=== PATIENT | male | born 1985 | race Caucasian/White ===

== ENCOUNTER 2024-08-17 00:15 | Day surgery (SDC) | payer OTHER, SELFPAY ==
[2024-08-08 15:45] VITALS: BMI 35.6
--- NOTE | 2024-08-08 15:46 | PC.NURSE ---
Addendum entered by Kourtney Velasquez RN 08/08/24 15:54: PT HAS STOPPED [facility] LAST DOSE 08/04/24 Original Note: Report to the Outpatient Waiting Room, entrance under the green pavilion located off [facility], at time 0600_ on date _09/13/24_. Planned Procedure Time: _0730_.? Time changes happen often and if your time is changed the preop area will call you the afternoon before. - You and your visitor will be asked to self-screen and do not enter if you have any COVID symptoms. Please call surgeon if you need to reschedule. - A mask is optional within the hospital at this time. Patients may have clear liquids (water, carbonated beverages, clear teas, apple juice) until 3 hours prior to surgery with a maximum of 20 ounces. - No food from midnight until time of surgery and no smoking, or chewing tobacco (or any form of nicotine). No chewing gum, candy or mints. - Infants may have breast milk until 4 hours before surgery, formula 6 hours prior to surgery. - Children will be allowed to drink immediately following surgery.? If applicable, please bring a bottle or sippy cup to assist with drinking. Juice, water, soda, and popsicles are readily available.? For infants on formula, please bring formula the day of surgery.? Pacifiers are allowed. Take only the following medications with a SIP of water on the morning of surgery: ___WELLBUTRIN, LEXAPRO, NALTREXONE DO NOT STOP ANY OF YOUR OTHER PRESCRIPTION MEDICATIONS PRIOR TO SURGERY EXCEPT THE FOLLOWING Hold all vitamins and supplements for 3 days per anesthesiologist. Medications to discontinue per physician Date to take last dose Please no make-up, nail portuguese, hairspray, perfume, deodorant, or body powder the day of surgery.? No jewelry (including any body piercings) or valuables the day of surgery, leave them at home.? Please take a shower or bath the night before, or the morning of, surgery with an antibacterial soap.? Wear comfortable, loose fitting clothing.? Children are encouraged to wear pajamas. - Jewelry must be removed prior to entering the operating room.? Rings and piercings that are not removed may be cut off. - The hospital will not accept responsibility for valuables.? - Please leave all valuables, including medications, at home the day of surgery. If you are going home after surgery, a licensed motor pool driver must drive you home.? - NO public transportation without another adult if you receive anesthesia. - We recommend that an adult stay with you for 24 hours following discharge. - We also recommend that you do not drive, make important decision, drink alcoholic beverages, or take any drugs that were not prescribed by your health care provider for at least 24 hours after your discharge time. For Pediatric surgeries, we recommend two adults accompany the child home. Follow any additional instructions given to you from your surgeon. Telephone instructions given to _PATIENT_and asked if any additional questions and then verbalized understanding. Patient advised to call surgeon office or pre surgery nurse liaison [phone] if any additional questions.
--- NOTE | 2024-08-16 14:28 | PM.IMHP ---
H&P: HPI History of Present Illness Date/Time: 08/16/24 14:28 Chief Complaint: left posterior ankle pain Narrative: 38-year-old gentleman with posterior left ankle and Achilles tendon pain. Prominence of the calcaneus. Pain with activity and daily use. Pain with weight-bearing. Unrelieved with therapy, stretching, inserts. Review of Systems Constitutional: Constitutional: Denies fever(s) Eyes: Eyes: Denies blurry vision ENT: Reports Normal hearing present Cardiovascular: Cardiovascular: Denies chest pain and Denies dyspnea Respiratory: Respiratory: Denies dyspnea and Denies wheezing Gastrointestinal: Gastrointestinal: Denies abdominal pain Genitourinary: Genitourinary: Denies urinary urgency Musculoskeletal: Musculoskeletal: Reports as per HPI and Denies numbness Integumentary/Breasts: Skin/Breast: Denies changing lesions and Denies sores Neurologic: Reports Normal hearing present, Denies behavioral changes, Denies confusion, Denies numbness and Denies convulsions Psychiatric: Psychiatric: Denies behavioral changes, Denies confusion and Denies hallucinations Endocrine: Endocrine: Denies heat intolerance Hematologic/Lymphatic: Hematologic/Lymphatic: Denies easy bleeding Allergic/Immunologic: Allergic/Immunologic: Denies wheezing PMF Past Medical History Medical History Exostosis of left posterior calcaneus Achilles tendinitis of left lower extremity Surgical History Surgical History H/O vasectomy History of appendectomy Family History Family History Unknown Hypertension Depression Heart disease Diabetes mellitus Cancer Social History Social History Social History: caffeine use Smoking status: Never smoker Alcohol intake: current Drinks per week: 1 Alcohol use details: 2 PER MONTH Substance use: never Living arrangements: with family Occupation/Education: occupation Additional occupation/education comments: [employer] Gender identity (if verbalized by the patient): Male Meds Home Medications and Allergies Home Medications ?Medication ?Instructions ?Recorded ?Confirmed ?Type bupropion HCl 150 mg 24 hr tablet, 150 mg PO QAM 07/11/24 08/08/24 History extended release (Wellbutrin XL) dextroamphetamine-amphetamine 10 10 mg PO BID 07/11/24 08/08/24 History mg tablet (Adderall) escitalopram oxalate 20 mg tablet 20 mg PO DAILY 07/11/24 08/08/24 History (Lexapro) naltrexone 50 mg tablet 25 mg PO DAILY 07/11/24 08/08/24 History tirzepatide 12.5 mg/0.5 mL 12.5 mg subcut WEEKLY 08/08/24 08/08/24 History subcutaneous pen injector (Mounjaro) Allergies Allergy/AdvReac Type Severity Reaction Status Date / Time No Known Allergies Allergy Unverified 08/08/24 15:36 Exam Const: General: No confusion Orientation/consciousness: No confusion HENMT: Head: normal to inspection, normocephalic and atraumatic Eyes: Conjunctivae: conjunctivae normal Sclera: sclerae normal Neck: Neck: supple and nontender Chest: Chest palpation & inspection: normal inspection of the chest Resp: Effort & Inspection: normal respiratory effort and no audible wheezes Cardio: Rate: regular rate Rhythm: regular rhythm : General: Yes deferred Skin: General skin exam: no rashes or lesions noted Neuro: General: No confusion Extrem: General: capillary refill normal Right upper extremity: normal to inspection Left upper extremity: normal to inspection Right lower extremity: normal to inspection, hip/thigh Details: normal to inspection, ankle Details: no tenderness and no swelling and foot Details: normal capillary refill, toes with normal ROM and vascular exam Details: dorsalis pedis pulse present and normal capillary refill Left lower extremity: hip/thigh Details: normal to inspection, knee Details: normal to inspection and knee ligament exam normal Details: anterior drawer test normal, valgus stress test normal, varus stress test normal and Ananda's test normal, ankle (no calf tenderness) Details: abnormal to inspection ( Posterior ankle, prominent posterior calcaneus), tenderness (posterior ankle joint, posterior calcaneus insertion Achilles tendon), swelling (moderate posterior ankle) Details: posteriorly, abnormal ROM ( ankle dorsiflexion 0, plantar flexion 40, inversion 15, eversion 5) Details: pain with active ROM and pain with passive ROM, crepitus Details: other ( ankle joint) and other ( good capillary refill in toes, 2+ DP pulse, light touch sensation intact, weakness with left-sided heel raise) and foot Details: normal capillary refill, toes with normal ROM, vascular exam Details: dorsalis pedis pulse present and motor-sensory exam light-touch normal Psych: Affect: normal affect Assessment and Plan Assessment and plan (1) Achilles tendinitis of left lower extremity: Code(s): M76.62 - Achilles tendinitis, left leg Status: Acute (2) Exostosis of left posterior calcaneus: Code(s): M77.32 - Calcaneal spur, left foot Status: Acute Assessment and Plan: chief complaint left posterior heel pain. History, physical exam and radiographs reviewed with the patient. Pain and prominence posterior heel for the past year. Pain with weight-bearing and daily activity. Unrelieved with therapy. Discussed the condition, nature, etiology and course of natural history with the patient. Treatment options including surgical and nonoperative treatment were reviewed. Risks and benefits of each as well as alternatives reviewed. The patient's questions were answered. Patient retains good strength. He would like to have the prominence removed. Discussed nonoperative and operative treatment options with the patient. Risks and benefits of each as well as alternatives were reviewed. All of the patient's questions were answered. The risks of surgery reviewed including but not limited to: Neurovascular damage, wound complication, infection, blood clot, pulmonary embolus, stroke, myocardial infarction, and anesthetic risks up to and including . Continued pain and possible dysfunction were explained. Specific risks of the procedure including later recurrence of deformity. No guarantees were offered. If hardware used, discussed risk of failure/ breakage and possible need for removal. If complications occur, the patient understands the need for further treatment, possible further surgery. Patient verbalizes understanding and wishes to proceed. We reviewed postoperative care and casting. Discussed aspirin for DVT prophylaxis. PLAN: Left Achilles tendon reconstruction, excision posterior calcaneal exostosis.
--- NOTE | 2024-08-16 15:29 | P.PNAN_ITS ---
Anes - Initial Pre Proc Eval Procedure: Operation Date: 08/17/24 07:30 Proposed Procedures p Left Achilles Reconstruction, - Torin Cuellar MD s Excision Calcaneal Exostosis, Possible Tendon Transfer - Torin Cuellar MD Date/Time: 08/16/24 15:29 Surgeon: Torin Cuellar MD Pre Op Diagnosis: Lt Achilles Tendinosis,Calcaneal Exostosis Patient Data Age: 38 Gender: M Height: 1.68 m Weight: 100 kg Allergies Allergy/AdvReac Type Severity Reaction Status Date / Time No Known Allergies Allergy Unverified 08/08/24 15:36 Home Medications ?Medication ?Instructions ?Recorded ?Confirmed ?Type bupropion HCl 150 mg 24 hr tablet, 150 mg PO QAM 07/11/24 08/08/24 History extended release (Wellbutrin XL) dextroamphetamine-amphetamine 10 10 mg PO BID 07/11/24 08/08/24 History mg tablet (Adderall) escitalopram oxalate 20 mg tablet 20 mg PO DAILY 07/11/24 08/08/24 History (Lexapro) naltrexone 50 mg tablet 25 mg PO DAILY 07/11/24 08/08/24 History tirzepatide 12.5 mg/0.5 mL 12.5 mg subcut WEEKLY 08/08/24 08/08/24 History subcutaneous pen injector (Mounjaro) Results Review: All pre-operative results and documents have been reviewed as part of the pre- operative evaluation. [facility] Past Medical History Medical History (Updated 08/16/24 @ 15:29 by Pascual Downs DO) ADHD Exostosis of left posterior calcaneus Achilles tendinitis of left lower extremity Surgical History Surgical History H/O vasectomy History of appendectomy Family History Family History Unknown Hypertension Depression Heart disease Diabetes mellitus Cancer Social History Social History Social History: caffeine use Smoking status: Never smoker Alcohol intake: current Drinks per week: 1 Alcohol use details: 2 PER MONTH Substance use: never Living arrangements: with family Occupation/Education: occupation Additional occupation/education comments: [employer] Gender identity (if verbalized by the patient): Male Anes - Eval Final PreProcedure Day of Procedure 08/16/24 15:29 Results Review: All pre-operative results and documents have been reviewed as part of the pre- operative evaluation. Informed Consent: The patient's anesthetic plan and its attendant risks and benefits were discussed with the patient/family/POA. Questions were solicited and answers provided to the satisfaction of the patient/family/POA.
[2024-08-17] VITALS (8 sets, daily range): BP systolic 126–141; BP diastolic 78–91; PULSE 71–78; RESP 15–18; TEMP 36.6–36.8; O2SAT 95–100; BMI 36.7
--- NOTE | ~2024-08-17 | XR_ITS ---
EXAMINATION: XR surgery orthopedic DATE: 08/17/2024 08:22 INDICATION: Left heel surgery TECHNIQUE: A single lateral fluoroscopic spot image of the left hindfoot was obtained during procedur e performed by Dr. Cuellar. Radiologist was not present for the imaging or procedure. The amount of f luoroscopy time used during this procedure was 0.1 minutes. Total DAP was 0.228 Gycm^2. COMPARISON: 07/11/2024 FINDINGS: Interval resection of a large enthesophyte and enthesopathic ossicle at the calcaneal insertion of th e distal Achilles tendon. Expected lucent soft tissue gas at the operative bed. Visualized bones are normal alignment with normal joint spaces. No fracture. IMPRESSION: 1. Achilles calcaneal cheilectomy. See procedure note for further detail. Reviewed, dictated and finalized at location A.
--- OUTSIDE RECORDS SUMMARY | 2024-08-17 00:35 | XMS_ITS | Clinical Summary ---
Author Organization [facility] Address [address] [place] [address] Care Team Providers Care Living Advisor Name Role Phone Gurinder Schroeder MD Primary Care Provider [phone] Source Comments [facility],non-owned Affiliates and Associated Physician Practices is amultiple site organization consisting of ambulatory clinics and hospital sitesin [place], [place], [place] and [place]. This disclosure is being madepursuant to the Care Everywhere program and may not contain all information available regarding this patient. Last updated 18.[facility] Allergies No known active allergies Medications * Be aware that medications may not be up to date on this document. Alwaysverify current medications with the patient. Medication Sig Dispensed Refills Start Date End Date Status famotidine (PEPCID AC) 10 MG tablet Take 10 mg by mouth once daily. Active traMADol (ULTRAM) 50 MG tablet Take 1 Tab by mouth every 6 hours as needed for Pain. 30 Tab 0 07/09/2013 Active ibuprofen (MOTRIN) 600 MG tablet Take 1 Tab by mouth every 6 hours as needed for Pain. 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 Sex and Gender Information Value Date Recorded Sex Assigned at Not on file Gender Identity Not on file Sexual Orientation Not on file Last Filed Vital Signs Vital Sign Reading Time Taken Comments Blood Pressure 152/89 07/09/2013 11:26 PM HOSEMAN Pulse 85 07/09/2013 11:26 PM HOSEMAN Temperature 36.6 C (97.9 F) 07/09/2013 11:26 PM HOSEMAN Respiratory Rate 15 07/09/2013 11:26 PM HOSEMAN Oxygen Saturation 98% 07/09/2013 11:26 PM HOSEMAN Inhaled Oxygen Concentration - - Weight 113.4 kg (250 lb) 07/09/2013 10:31 PM HOSEMAN Height 180.3 cm (5' 11 ) 07/09/2013 10:31 PM HOSEMAN Body Mass Index 34.87 07/09/2013 10:31 PM HOSEMAN Plan of Treatment Health Maintenance Due Date Last Done Comments HIV SCREENING 2000 HEPATITIS C SCREENING 10/15/2003 DTAP/TDAP/TD VACCINES (1 - Tdap) 2004 HEPATITIS B VACCINE (1 of 3 - 19+ 3-dose series) 2004 COVID-19 VACCINE ( - 2023-2 5 season) 2024 DEPRESSION SCREENING 05/17/2024 INFLUENZA VACCINE (Season Ended) 2025 05/03/20 13 ZOSTER VACCINE (1 of 2) 10/20/2035 HIB VACCINE Aged Out No longer eligi ble based on patient's age to complete this topic HPV VACCINE Aged Out No longer eligi ble based on patient's age to complete this topic MENINGOCOCCAL (Group B) VACC INE SHARED DECISION-MAKING Aged Out No longer eligibl e based on patient's age to complete this topic MENINGOCOCCAL GROUPS A/C/Y/W VACCINE Aged Out No longer eligible b ased on patient's age to complete this topic PNEUMOCOCCAL VACCINE Aged Out No long er eligible based on patient's age to complete this topic Care Teams Living Advisor Relationship Specialty Start Date End Date Gurinder Schroeder MD [address] [place] [address] PCP - General Internal Medicine 02/11/24
--- OUTSIDE RECORDS SUMMARY | 2024-08-17 00:35 | XMS_ITS | Clinical Summary ---
Author Organization [facility] [place] Address [address] [place] [address] Care Team Providers Care Manipulator Operator Name Role Phone Ray Gonzalez MD Primary Care Provider [phone] Allergies Active Allergy Reactions Criticality Noted Date Comments Milk Diarrhea Low 10/17/2010 Medications citalopram (CELEXA) 20 mg tablet Take 1 Tab by mouth daily at bedtime. 90 Tab 3 02/13/2014 Active pantoprazole (PROTONIX) 40 mg Tablet, Delayed Release (E.C.) TAKE ONE TABLET BY MOUTH ONCE DAILY 90 Tab 3 08/30/2014 Active citalopram (CELEXA) 10 mg tablet TAKE ONE TABLET BY MOUTH ONCE DAILY 30 Tablet 0 07/05/2015 Active aspirin (RASHMI) 325 mg tablet Take 325 mg by mouth. Active loperamide (IMODIUM) 2 mg capsule Take 2 mg by mouth every 3 hours as needed. Active Active Problems Problem Noted Date Diagnosed Date Generalized anxiety disorder 10/02/2013 Immunizations Immunization Administration Dates Next Due (ADACEL/BOOSTRIX)(10 YR UP) TDAP VACCINE, 0.5ML, IM 06/29/2011 Influenza Vaccine Split 3+ Yrs PF IM 05/03/2013 Social History Tobacco Use Types Packs/Day Years Used Date Smoking Tobacco: Never Alcohol Use Standard Drinks/Week Comments Yes 4.2 (1 standard drink = 0.6 oz p ure alcohol) weekly Sex and Gender Information Value Date Recorded Sex Assigned at Not on file Legal Sex Male 5:00 AM DIRECTOR CARDIOVASCULAR Gender Identity Not on file Sexual Orientation Not on file Last Filed Vital Signs Vital Sign Reading Time Taken Comments Blood Pressure 124/74 11/22/2014 11:41 AM CDT Pulse 80 11/22/2014 11:41 AM CDT Temperature 37.7 C (99.8 F) 11/22/2014 11:41 AM CDT Respiratory Rate 16 11/22/2014 11:41 AM CDT Oxygen Saturation 97% 03/15/2013 2:10 PM CDT Inhaled Oxygen Concentration - - Weight 108.9 kg (240 lb) 11/22/2014 11:41 AM CDT Height 172.7 cm (5' 8 ) 11/22/2014 11:41 AM CDT Body Mass Index 36.49 11/22/2014 11:41 AM CDT Plan of Treatment Health Maintenance Due Date Last Done Comments HEPATITIS B VACCINES (1 of 3 - 19+ 3-dose series) 2004 DTAP/TDAP/TD VACCINES (2 - T d or Tdap) 06/29/2021 06/29/2011 INFLUENZA VACCINE (#1) 2023 05/03/2013 HPV VACCINES Aged Out No longer eligi ble based on patient's age to complete this topic PNEUMOCOCCAL VACCINE 0-49 YEARS Aged Out No longer eligible based on patient's age to complete this topic Insurance Advance Directives For more information, please contact: [phone] Documents on File Type Date Recorded 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
--- OUTSIDE RECORDS SUMMARY | 2024-08-17 00:35 | XMS_ITS ---
Author Organization [facility], [facility]. 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 Role Phone Gurinder Schroeder MD Primary Care Physician [phone] Allergies No Known Allergies Medications Current Medications Medication Directions Start Date Discontinues Da te ibuprofen 800 mg tabs 1 tab orally every 8 hours as needed for pain 2023-06-01 cetirizine 10 mg tabs 1 tab orally daily as needed for allergic symptoms 2024-05-[address] caps 1 cap orally da mio as needed for acid reflux 2024-05-19 fluticasone propionate intranasal 50 mcg/actuation suspension spray 2 sprays into the nostril(s) daily 2024-07-19 Past Medications Medication Directions Start Date End Date Mounjaro 12.5 mg/0.5 mL pen injectors 0.5 mL subcutaneously every week 2023-08-09 2024-07-05 methylprednisolone 4 mg tabs , dose pack 1 tab orally per package directions for 6 days 2023-06-01 2023-06-07 Problems Problem Status Assessment and P jean paul Severe obesity (BMI 40) Active Impression: Patient is antic ipating ankle surgery that may result in NWB status for several weeks. He is concerned about muscle atrophy while on mounjaro at this time and has stopped taking it. Is enquiring about alternative options including bupropion, naltrexone, b12 and metformin. Has normal glucose and a1c levels.Plan- issues and options reviewed; Bupropion and naltrexone together [as contrave] have FDA approval for weight loss although this is not going to be as effective as mounjaro. No contraindications to either medication; risk/benefit reviewed. No clear benefit to Metformin or B12. SDM - rx sent for buproprion xl 150 mg qday and naltrexone 50 mg 1/2 tab q day. OK to continue lexapro. Recommend continuing upper body exercise and activity as allowable. Advise goal of avoiding re gain on this regimen; consider restart mounjaro in future; needs to start back at the beginning if significant lapse. Patient expressed understanding. Diarrhea Resolved Diarrhea + abdom inal pain, hx of being on mounjaro, travelling recently abroad. ddx including pancreatic dysfunction, biliary dysfunction, ibs, ibd, pud, h pylori, stool parasite, iatrogenicPrelim testing done and follow up with OV when results come in to discuss furtherP:-fecal H pylori-fecal panc yygqczia-jbhcvio-q/p and culture -cbc with diff, cmp, and amylase/lipase--all labs were negative above except for mildly suppressed PE which can be seen in mounjaro, pt appears to be doing well, if resumes having symptoms suggest seeing GI Gastroesophageal reflux disease Active Patient feels GERD is doing well but recent onset nausea. Labs ordered; consider consistent PPI use for 2 weeks if symptoms persist Epigastric abdominal pain Resolved Patien t responded to check-in saying condition was better Lower back pain Active Patient responde d to check-in saying condition was better Acute rhinosinusitis Resolved Patient res ponded to check-in saying condition was better Nausea Resolved Mild nausea no e mesis; exam unrevealing. Labs ordered; Consider trial daily psi; consider further work up. Red flag symptoms discussed. Nasal congestion Active Impression- pat ient reports a 1 month history of nasal congestion; thick drainage in the morning as well as some external nasal tenderness and pain in back of head. Snoring may be contributing to non-restorative sleep and pain in back of head. Not in acute distress.Plan- issues reviewed; no sign of active bacterial infection. Patient will resume sinus rinse an use Flonase daily after rinse. Referring to ENT. Red flag symptoms discussed. See also under somnolence. Patient expressed understanding. Somnolence Active Consider GLENDA- co nsider sleep study if symptoms don't improve with treatment of nasal/sinus issues. History of Procedures Order Codes Created Status No known procedures Results Tests Date Results Flag Units Reference Interval CBC With Differential/Platel et White blood cell count 2023-05-14 06:08:00 -0800 8.1 10*3/uL 3.4-10.8 Red blood cell count 2023-05-14 06:08:00 -0800 5.14 10*6/uL 4.14-5.80 Hemoglobin 2023-05-14 06:08:00 -0800 15.5 g/dL 13.0-17.7 Hematocrit 2023-05-14 06:08:00 0800 45.0 % 37.5-51.0 Mean corpuscular volume 2023-05-14 06:08:00 -0800 88.0 fL 79-97 Mean corpuscular hemoglobin 2023-05-14 06:08:00 0800 30.2 pg 26.6-33.0 Mean corpuscular hemoglobin concentration 2023-05-14 06:08:00 0800 34.4 g/dL 31.5-35.7 Red blood cell distribution width 2023-05-14 06:08:00 -0800 13.0 % 11.6-15.4 Platelet count 2023-05-14 06:08:00 -0800 278.0 10*3/uL 150-450 Neutrophils 2023-05-14 06:08:00 -0800 55.0 % Not Estab. Lymphocytes 2023-05-14 06:08:00 -0800 33.0 % Not Estab. Monocytes 2023-05-14 06:08:00 -0800 7.0 % Not Estab. Eosinophils 2023-05-14 06:08:00 -0800 4.0 % Not Estab. Basophils 2023-05-14 06:08:00 -0800 1.0 % Not Estab. Immature Cells 2023-05-14 06:08:00 -0800 Absolute neutrophils 2023-05-14 06:08:00 -0800 4.5 10*3/uL 1.4-7.0 Absolute lymphocytes 2023-05-14 06:08:00 -0800 2.6 10*3/uL 0.7-3.1 Absolute monocytes 2023-05-14 06:08:00 -0800 0.6 10*3/uL 0.1-0.9 Absolute eosinophils 2023-05-14 06:08:00 -0800 0.3 10*3/uL 0.0-0.4 Absolute basophils 2023-05-14 06:08:00 -0800 0.1 10*3/uL 0.0-0.2 Immature granulocytes 2023-05-14 06:08:00 -0800 0.0 % Not Estab. Absolute immature granulocytes 2023-05-14 06:08:00 -0800 0.0 10*3/uL 0.0-0.1 CBC morphology 2023-05-14 06:08:00 -0800 Tests Date Results Flag Units Reference Interval Comp. Metabolic Panel (14) Glucose 2023-05-14 06:08:00 -0800 99.0 mg/dL 70-99 Blood urea nitrogen 2023-05-14 06:08:00 0800 10.0 mg/dL 6-20 Creatinine 2023-05-14 06:08:00 0800 1.0 mg/dL 0.76-1.27 eGFRcr CKD-EPI 2023-05-14 06:08:00 08 99.0 mL/min/{1.73_m 2} >59 BUN/creatinine 2023-05-14 06:08:00 0800 10.0 9-20 Sodium 2023-05-14 06:08:00 0800 141.0 mmol/L 134-144 Potassium 2023-05-14 06:08:00 0800 4.3 mmol/L 3.5-5.2 Chloride 2023-05-14 06:08:00 0800 105.0 mmol/L 96-106 Carbon dioxide 2023-05-14 06:08:00 0800 23.0 mmol/L 20-29 Calcium 2023-05-14 06:08:00 0800 8.9 mg/dL 8.7-10.2 Protein, total 2023-05-14 06:08:00 08 6.4 g/dL 6.0-8.5 Albumin 2023-05-14 06:08:00 0800 4.3 g/dL 4.1-5.1 Globulin (calculated) 2023-05-14 06:08:00 -0800 2.1 g/dL 1.5-4.5 Albumin/globulin 2023-05-14 06:08:00 0800 2.0 1.2-2.2 Bilirubin, total 2023-05-14 06:08:00 -0800 0.3 mg/dL 0.0-1.2 Alkaline phosphatase 2023-05-14 06:08:00 -0800 80.0 [IU]/L 44-121 Aspartate aminotransferase 2023-05-14 06:08:00 -0800 32.0 [IU]/L 0-40 Alanine aminotransferase 2023-05-14 06:08:00 -0800 43.0 [IU]/L 0-44 Tests Date Results Flag Units Reference Interval Amylase, Serum Amylase 2023-05-14 06:08:00 -0800 64.0 U/L 31-110 Tests Date Results Flag Units Reference Interval Lipase, Serum Lipase 2023-05-14 06:08:00 -0800 24.0 U/L 13-78 Tests Date Results Flag Units Reference Interval Stool Culture Salmonella and Shigella spp 2023-05-14 13:03:00 -0800 Final report Campylobacter spp 2023-05-14 13:03:00 -0800 Final report E. coli Shiga-like toxin 2023-05-14 13:03:00 -0800 Negative Negative Tests Date Results Flag Units Reference Interval Result Bacterial identification 2023-05-14 13:03:00 -0800 No Salmonella or Shigella re covered. Tests Date Results Flag Units Reference Interval Result Bacterial identification 2023-05-14 13:03:00 -0800 No Campylobacter species iso lated. Tests Date Results Flag Units Reference Interval Pancreatic Elastase, Fecal PANCREATIC ELASTASE-1 2023-05-14 13:03:00 -0800 153.0 L ug{elast}/g >200 Severe Pancreatic Insufficie ncy: <100 Moderate Pancreatic Insufficiency: 100 - 200 Normal: >200 Tests Date Results Flag Units Reference Interval Ova + Parasite Exam Ova and parasites 2023-05-14 13:03:00 -0800 Final report These results were obtained using wet preparation(s) and trichromestained smear. This test does not include testing for Cryptosporidiumparvum, Cyclospora, or Microsporidia. Tests Date Results Flag Units Reference Interval Result Ova and parasites concentration 2023-05-14 13:03:00 -0800 No ova, cysts, or parasites seen. .One negative specimen does not rule out the possibility of aparasitic infection. Tests Date Results Flag Units Reference Interval H. pylori Stool Ag, EIA H. pylori antigen 2023-05-14 13:03:00 -0800 Negative Negative Tests Date Results Flag Units Reference Interval Giardia lamblia Ag, EIA G. lamblia 2023-05-14 13:03:00 -0800 Negative Negative Tests Date Results Flag Units Reference Interval CBC With Differential/Platel et White blood cell count 2024-05-19 09:35:00 -0800 8.6 10*3/uL 3.4-10.8 Red blood cell count 2024-05-19 09:35:00 -0800 5.54 10*6/uL 4.14-5.80 Hemoglobin 2024-05-19 09:35:00 -0800 16.4 g/dL 13.0-17.7 Hematocrit 2024-05-19 09:35:00 -0800 48.4 % 37.5-51.0 Mean corpuscular volume 2024-05-19 09:35:00 -0800 87.0 fL 79-97 Mean corpuscular hemoglobin 2024-05-19 09:35:00 -0800 29.6 pg 26.6-33.0 Mean corpuscular hemoglobin concentration 2024-05-19 09:35:00 -0800 33.9 g/dL 31.5-35.7 Red blood cell distribution width 2024-05-19 09:35:00 -0800 12.1 % 11.6-15.4 Platelet count 2024-05-19 09:35:00 -0800 282.0 10*3/uL 150-450 Neutrophils 2024-05-19 09:35:00 -0800 60.0 % Not Estab. Lymphocytes 2024-05-19 09:35:00 -0800 31.0 % Not Estab. Monocytes 2024-05-19 09:35:00 -0800 6.0 % Not Estab. Eosinophils 2024-05-19 09:35:00 -0800 2.0 % Not Estab. Basophils 2024-05-19 09:35:00 -0800 1.0 % Not Estab. Immature Cells 2024-05-19 09:35:00 -0800 Absolute neutrophils 2024-05-19 09:35:00 -0800 5.2 10*3/uL 1.4-7.0 Absolute lymphocytes 2024-05-19 09:35:00 -0800 2.6 10*3/uL 0.7-3.1 Absolute monocytes 2024-05-19 09:35:00 -0800 0.5 10*3/uL 0.1-0.9 Absolute eosinophils 2024-05-19 09:35:00 -0800 0.2 10*3/uL 0.0-0.4 Absolute basophils 2024-05-19 09:35:00 -0800 0.1 10*3/uL 0.0-0.2 Immature granulocytes 2024-05-19 09:35:00 -0800 0.0 % Not Estab. Absolute immature granulocytes 2024-05-19 09:35:00 -0800 0.0 10*3/uL 0.0-0.1 CBC morphology 2024-05-19 09:35:00 -0800 Tests Date Results Flag Units Reference Interval Comp. Metabolic Panel (14) Glucose 2024-05-19 09:35:00 -0800 90.0 mg/dL 70-99 Blood urea nitrogen 2024-05-19 09:35:00 -0800 14.0 mg/dL 6-20 Creatinine 2024-05-19 09:35:00 -0800 0.97 mg/dL 0.76-1.27 eGFRcr CKD-EPI 2024-05-19 09:35:00 -0800 102.0 mL/min/{1.73_m 2} >59 BUN/creatinine 2024-05-19 09:35:00 -0800 14.0 9-20 Sodium 2024-05-19 09:35:00 -0800 140.0 mmol/L 134-144 Potassium 2024-05-19 09:35:00 -0800 4.6 mmol/L 3.5-5.2 Chloride 2024-05-19 09:35:00 -0800 101.0 mmol/L 96-106 Carbon dioxide 2024-05-19 09:35:00 -0800 26.0 mmol/L 20-29 Calcium 2024-05-19 09:35:00 -0800 9.7 mg/dL 8.7-10.2 Protein, total 2024-05-19 09:35:00 -0800 7.2 g/dL 6.0-8.5 Albumin 2024-05-19 09:35:00 -0800 4.7 g/dL 4.1-5.1 Globulin (calculated) 2024-05-19 09:35:00 -0800 2.5 g/dL 1.5-4.5 Bilirubin, total 2024-05-19 09:35:00 -0800 0.4 mg/dL 0.0-1.2 Alkaline phosphatase 2024-05-19 09:35:00 -0800 88.0 [IU]/L 44-121 Aspartate aminotransferase 2024-05-19 09:35:00 -0800 25.0 [IU]/L 0-40 Alanine aminotransferase 2024-05-19 09:35:00 -0800 36.0 [IU]/L 0-44 Tests Date Results Flag Units Reference Interval Lipid Panel Cholesterol, total 2024-05-19 09:35:00 -0800 217.0 H mg/dL 100-199 Triglycerides 2024-05-19 09:35:00 -0800 177.0 H mg/dL 0-149 High-density lipoprotein 2024-05-19 09:3 5:00 -0800 49.0 mg/dL >39 Very low-density lipoprotein 2024-05-19 09:35:00 -0800 32.0 mg/dL 5-40 Low-density lipoprotein 2024-05-19 09:35 :00 -0800 136.0 H mg/dL 0-99 Tests Date Results Flag Units Reference Interval Hemoglobin A1c Hemoglobin A1c 2024-05-19 09:35:00 -0800 5.0 % 4.8-5.6 . Prediabetes: 5.7 - 6.4 Kaylee betes: >6.4 Glycemic control for adults with diabetes: <7.0 Tests Date Results Flag Units Reference Interval Thyroid [place] Profile Thyroid stimulating hormone 2024-05-19 09:35:00 -0800 1.86 u[iU]/mL 0.450-4.500 No apparent thyroid disorder . Additional testing not indicated. Inrare instances, Secondary Hypothyroidism as well as SubclinicalHypothyroidism have been reported in some patients with normal TSHvalues. Tests Date Results Flag Units Reference Interval Lipase, Serum Lipase 2024-05-19 09:35:00 -0800 72.0 U/L 13-78 ENCOUNTERS Encounter Performer Location Encounter date Diagnosis Diagnosis Status Level 3 outpatient visit for evaluation and management of new patient with problem of moderate severity, including detailed history and physical examination, and medical decision making of low complexity - typical time with patient and/or family 30 minutes TABATHA [facility]row[facility] [address] [facility] [address] [place] [address] Note signed at: 2023-04-26 06:17:48 -0800 Obesity Inactive Level 3 outpatient visit for evaluation and management of established patient with problem of low to moderate severity, including expanded history and medical decision making of low complexity - typical time with patient and/or family 15 minutes [facility] [address] [place] [id number] Note signed at: 2023-05-07 14:23:36 -0800 Severe obesity (BMI 40) Inactive Level 3 outpatient visit for evaluation and management of established patient with problem of low to moderate severity, including expanded history and medical decision making of low complexity - typical time with patient and/or family 15 minutes Yuliana Santana MD[address] [address] Note signed at: 2023-05-13 12:41:14 -0800 Diarrhea Active Gastroesophageal reflux disease Active Epigastric abdominal pain Active Periodic comprehensive preventive medicine reevaluation and management of an individual including an age and gender appropriate history, examination, counseling/anticipatory guidance/risk factor reduction interventions, and the ordering of laboratory/diagnostic procedures, established patient; 18-39 years Gurinder [facility]eder [facility] [address] [place] [address] Note signed at: 2023-05-19 06:28:04 -0800 ADHD Inactive Generalized anxiety disorder Active Major depression (recurrent) with moderate symptoms Active Severe obesity (BMI 40) Inactive Level 4 outpatient visit for evaluation and management of established patient with problem of moderate to high severity, including detailed history and medical decision making of moderate complexity - typical time with patient and/or family 25 minutes [facility] [address] Note signed at: 2023-06-01 13:47:14 -0800 Lower back pain Active Level 3 outpatient visit for evaluation and management of established patient with problem of low to moderate severity, including expanded history and medical decision making of low complexity - typical time with patient and/or family 15 minutes [facility] [address] [place] [address] Note signed at: 2023-06-23 09:22:19 -0800 Acute rhinosinusitis Active Level 3 outpatient visit for evaluation and management of established patient with problem of low to moderate severity, including expanded history and medical decision making of low complexity - typical time with patient and/or family 15 minutes [facility] [address] [place] [address] Note signed at: 2023-08-10 05:55:41 -0700 Severe obesity (BMI 40) Inactive Level 3 outpatient visit for evaluation and management of established patient with problem of low to moderate severity, including expanded history and medical decision making of low complexity - typical time with patient and/or family 15 minutes [facility]inder [facility] [address] [place] [address] Note signed at: 2023-10-08 06:20:39 -0700 Gastroesophageal reflux disease Active Severe obesity (BMI 40) Inactive Level 3 outpatient visit for evaluation and management of established patient with problem of low to moderate severity, including expanded history and medical decision making of low complexity - typical time with patient and/or family 15 minutes Kaley Kirk [facility] [place] [id number] Note signed at: 2023-12-24 06:15:00 -0700 ADHD Inactive Level 2 outpatient visit for evaluation and management of established patient with self-limited and/or minor problem, including problem-focused history and physical examination, and straightforward medical decision-making - typical time with patient and/or family 10 minutes or less Makeda Falcon [facility] Note signed at: 2023-12-24 08:41:59 -0700 Level 3 outpatient visit for evaluation and management of established patient with problem of low to moderate severity, including expanded history and medical decision making of low complexity - typical time with patient and/or family 15 minutes [facility] [address] [place] [address] Note signed at: 2024-03-01 12:20:35 -0700 Severe obesity (BMI 40) Inactive Level 3 outpatient visit for evaluation and management of established patient with problem of low to moderate severity, including expanded history and medical decision making of low complexity - typical time with patient and/or family 15 minutes [facility] [address] [place] [address] Note signed at: 2024-03-07 11:21:52 -0700 ADHD Inactive Periodic comprehensive preventive medicine reevaluation and management of an individual including an age and gender appropriate history, examination, counseling/anticipatory guidance/risk factor reduction interventions, and the ordering of laboratory/diagnostic procedures, established patient; 18-39 years Gurinder Schroeder [facility] [address] [place] [address] Note signed at: 2024-05-21 10:05:12 -0800 ADHD Inactive Gastroesophageal reflux disease Active Generalized anxiety disorder Active Severe obesity (BMI 40) Inactive Nausea Active Level 2 outpatient visit for evaluation and management of established patient with self-limited and/or minor problem, including problem-focused history and physical examination, and straightforward medical decision-making - typical time with patient and/or family 10 minutes or less Yogesh SaranyaWest [facility] Hospitalena[address] [address] Note signed at: 2024-05-19 11:18:10 -0800 Level 3 outpatient visit for evaluation and management of established patient with problem of low to moderate severity, including expanded history and medical decision making of low complexity - typical time with patient and/or family 15 minutes [facility] [address] [place] [address] Note signed at: 2024-07-05 17:18:54 -0800 ADHD Inactive Severe obesity (BMI 40) Inactive Level 3 outpatient visit for evaluation and management of established patient with problem of low to moderate severity, including expanded history and medical decision making of low complexity - typical time with patient and/or family 15 minutes Gurinder Schroeder [facility] [address] [place] [address] Note signed at: 2024-07-20 05:19:44 -0800 Nasal congestion Active Somnolence Active ADHD Inactive Family History Mother: breast cancer, HTN, maybe bipolar; non-verbal due to TBIFather: bladder cancer [] ,depressionMGF- PR, DM - PR around age 70MGF- probably bipolar??Siblings: 1/2 sister - bipolar D/o, anxietyChildren:?? 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 Diet: some carbs; focuses on protein 120 g per day- ; doesn't eat pork lots of vegetables; eats out for some meals; 26-50% plant based; rare sweetened drinks. Still working on [employer]; avoiding processed food; protein from beef chicken fish nuts protein powder. 27 g fiber supplementSleep- no issues 8 hours Caffeine: 2 espressos daily Alcohol: monthly or less, no bingesSubstance use: Living situation: and kids Sexual activity: yes, one monogamous partner. Immunizations Vaccine Date Status influenza (6 mos+, preservative-free) 01/23/2019 Completed [Tdap] (tetanus, diphtheria & acellular pertussi s (age 7+) 11/11/2019 Completed influenza (egg-free, quadrivalent, preservative- free) 04/10/2020 Completed SARS-CoV-2 mRNA vaccine (Pfizer) 07/10/2020 Completed SARS-CoV-2 mRNA vaccine (Pfizer) 08/08/2020 Completed influenza (6 mos+, preservative-free) 02/22/2021 Completed influenza (6 mos+, preservative-free) 01/14/2022 Completed influenza (egg-free, quadrivalent, preservative- free) 02/18/2023 Completed influenza (6 months+, preservative-free) 013 Completed influenza (18+, Flublok, PF) 05/19/2024 Com pleted influenza (18+, Flublok, PF) 05/19/2024 Dec lined Vital Signs Date Blood Pressure Pulse Temperature Respiratory Rate Height Weight BMI SpO2 O2 Concentration 2024 98.88 kg 2024 128/76mm[H g] 2024 77 /min 16 /min 167.64 cm 102.51 kg 36 kg/m 2 97% 2023 124/83mm[H g] 2023 72 /min Plan of Treatment Health Screenings Date Goal Action Comments May 18, 2025 Diabetes screening Hemoglobin A1c May 18, 2025 ASCVD risk assessment Lipid panel Screening History Date Screening Action May 14, 2023 Diabetes screening Fasting blo od glucose January 26, 2024 Depression screening PHQ-9 May 19, 2024 Diabetes screening Hemoglobin A 1c May 19, 2024 ASCVD risk assessment Lipid [place] Insurance Providers Payer name Policy type / Coverage type Policy ID Covered republican ID Policy Peterson Jeanie O [id number] Self Notes * Office Visit - 04/26/2023 SUBJECTIVE: Confirmed name and date of with patient. Confirmed [facility]'s [facility]. Patient consented to receiving telemedicine services by signing our terms of service. This telemedicine visit was conducted??using real-time audio-video telecommunications. 37 yo M presents?? - put on 60 lbs in last year - to date has lost 30lb with mounjaro?? - stayed on 7.5 for 2nd month because it was working - would like to stay on 7.5?? - was just in [place] for 2 weeks?? - doing well on medication OBJECTIVE: General: NAD HEENT: EOMI, nl conjunctiva & lids, hearing grossly nl Pulm: no appreciable SOB, stridors, cough MSK: observed FROM Neuro: A&O, nl sit/stand, nl gait Psych: normal judgment, insight, mood, affect Skin: no rashes, ecchymoses, suspicious lesions visualized ASSESSMENT AND PLAN: Impression: Patient is anticipating ankle surgery that may result in NWB status for several weeks. He is concerned about muscle atrophy while on mounjaro at this time and has stopped taking it. Is enquiring about alternative options including bupropion, naltrexone, b12 and metformin. Has normal glucose and a1c levels. Plan- issues and options reviewed; Bupropion and naltrexone together [as contrave] have FDA approval for weight loss although this is not going to be as effective as mounjaro. No contraindications toeither medication; risk/benefit reviewed. No clear benefit to Metformin or B12.?? SDM - rx sent forbuproprion xl 150 mg qday and naltrexone 50 mg 1/2 tab q day. OK to continue lexapro. Recommend continuing upper body exercise and activity as allowable. Advise goal of avoiding re gain on this regimen; consider restart mounjaro in future; needs to start back at the beginning if significant lapse. Patient expressed understanding.?? * Office Visit - 05/07/2023 SUBJECTIVE: Confirmed name and date of with patient. Patient consented to receiving telemedicine services by signing our terms of service. This telemedicine visit was conducted??using real-time audio-video telecommunications. 37 yo man with history of obeisty- gained weight over past few years max dose of 250 lb. Started onmounjaro x 3-4 months; lost weight to 216 lb.?? Has been on 7.5 mg dose for 2 months and seems to be hitting a plateau and would like to discuss increasing dose.?? Patient is tolerating the medication -had some itching around the injection site but this seems to be resolved. Has had some constipation over past 3-4 weeks which seems to be related to recent travel - getting better.?? Patient was seen earlier this year at [facility] and had lab work that he thinks was all ok. Records have been requested.?? OBJECTIVE: General: No acute distress, well-appearing HEENT: NCAT,normal conjunctiva & lids, hearing grossly normal, external ears normal, good dentition, OP clear Pulmonary: breathing non-labored, no appreciable stridors, wheezing, cough Neuro: appropriate cognition, normal speech, no obvious deficit Psych: appropriate judgment, insight, mood, affect Skin: no rashes, ecchymoses, suspicious lesions Exam limited by use of video platform. * Office Visit - 05/13/2023 SUBJECTIVE: Confirmed name and date of with patient. Patient consented to receiving telemedicine services by signing our terms of service. This telemedicine visit was conducted??using real-time audio-video telecommunications. CC: stomach pain that first started years ago Travels to [place] a lot last month in [place] constipation issues for 2 weeks with constipation after returning?? had same problems too she is still having stomach pain and so is he?? He is having progressively worsening diarrhea It is not going away?? Also on mounjaro has increased water intake?? ddx: gallbladder, infectious disease, ibs?? all watery stools with floaters does not hurt to stool?? no blood lower abdomen under belly button?? lactose intolerant also noted SEVERE acid reflux after returning from [facility] to a week and half?? then turned into stomach pain?? OBJECTIVE: ?? General: No acute distress, well-appearing HEENT: NCAT, pupils grossly normal, EOMI, normal conjunctiva & lids, hearing grossly normal, external ears normal, good dentition, OP clear Neck: full ROM,?? Pulmonary: breathing non-labored, no appreciable stridors, wheezing, cough Abdomen: non-distended, ttp below umbilicus MSK: grossly normal Extremities: no edema Neuro: appropriate cognition, normal speech, no obvious deficit Psych: appropriate judgment, insight, mood, affect Skin: no rashes, ecchymoses, suspicious lesions Exam limited by use of video platform. ASSESSMENT AND PLAN: Diarrhea + abdominal pain, hx of being on mounjaro, travelling recently abroad.?? ddx including pancreatic dysfunction, biliary dysfunction, ibs, ibd, pud, h pylori, stool parasite,iatrogenic Prelim testing done and follow up with OV when results come in to discuss further P: -fecal H pylori -fecal panc elastase -giardia -o/p and culture?? -cbc with diff, cmp, and amylase/lipase --all labs were negative above except for mildly suppressed PE which can be seen in mounjaro, pt appears to be doing well, if resumes having symptoms suggest seeing GI?? Patient feels GERD is doing well but recent onset nausea. Labs ordered; consider consistent PPI usefor 2 weeks if symptoms persist Patient responded to check-in saying condition was better * Office Visit - 05/19/2023 SUBJECTIVE: 37 yo man with medical issues including obesity, depression, ADHD and GERD presenting for yearly wellness visit. Had recent GI issues with GERD, abdominal pain and diarrhea -hadn't increased terzepitide dose yet.?? had similar GI issues; patient had recently traveled to [facility]. Had some unremarkable blood work; stool test results pending. Is actually feeling a lot better.?? previously on omeprazole takes prn now?? Patient has been taking terzepitide for weight loss- max weight was 244.?? Patient was switched from mounaro brand to zepbound since not diabetic. Has taken 1 dose of the 10 mg so far which appears to be tolerated.?? Review of systems: GEN: negative for fever, fatigue, unintended weight loss, change in appetite, disturbed sleep; losing weight with effort.?? HEENT: negative for throat pain, dysphagia, nasal congestion, sinus pressure; loss of hearing, ear pain; utd on dental cleanings and eye exams. Cardiac: no exertional chest pain, palpitations, edema, light headedness Pulmonary: no shortness of breath, cough, wheeze GI: see HPI : no dysuria, frequency, feels STI risk is low SKIN: no rash, color changes; receding hairlline; wears sunscreen and hat Psych: on medication for ADHD, depression and anxiety from psychiatry; generally doing well MSK- no back/joint/muscle pain OBJECTIVE: Height self reported; weight measured with shoes. General: No distress HEENT: NC/AT nl conjunctiva & lids, hearing grossly nl, normal mucous membranes and oropharynx Neck: supple, no concerning masses, no LAD Lungs: CTA bilaterally, nl effort CV: RRR , no M/R/G, no edema Abd: S/NT/ND Neuro/Psych: appropriate affect and responses, normal gait, no focal deficits appreciated Skin: normal color and turgor * Office Visit - 06/01/2023 SUBJECTIVE: Confirmed name and date of with patient. Patient consented to receiving telemedicine services by signing our terms of service. This telemedicine visit was conducted??using real-time audio-video telecommunications. -back pain for 4 days?? -pain travels down the left leg -started after shoveling snow 4 days ago -does not want muscle relaxers -is traveling a lot for work right now, but is trying to strech and walk and using heat therapy when he can?? OBJECTIVE: Exam limited by use of video platform. Pleasant and calm. Speaking in full, complete sentences. Breathing normal and unlabored. No acute distress. Answering all questions appropriately andwithout difficulty. * Office Visit - 06/23/2023 SUBJECTIVE: Confirmed name and date of with patient. Patient consented to receiving telemedicine services by signing our terms of service. This telemedicine visit was conducted??using real-time audio-video telecommunications. 37 yo man presents remotely c/o R>L ear pressure and ++ nasal congested with post nasal drip andR sided facial pressure.?? Started around 5 days ago and got worse for a few days; clear rhinorrhea. Mild cough. No obvious fever; was a little winded riding his bike to work Using neti pot and saline spray offer brief help.?? Taking 12 hour Guaifenesin?? OBJECTIVE: General: No acute distress, well-appearing HEENT: NCAT, normal conjunctiva & lids, hearing grossly normal, external ears normal, good dentition, OP moist; + R sided maxillary and frontal tenderness noted by patient on self exam. Neck: full ROM, no lymphadenopathy noted by pt on self-exam Pulmonary: breathing non-labored, no appreciable stridors, wheezing, cough Neuro: appropriate cognition, normal speech, no obvious deficit Psych: appropriate judgment, insight, mood, affect Skin: no rashes, ecchymoses, suspicious lesions Exam limited by use of video platform. * Office Visit - 08/10/2023 SUBJECTIVE: Confirmed name and date of with patient. Patient consented to receiving telemedicine services by signing our terms of service. This telemedicine visit was conducted??using real-time audio-video telecommunications. 37 yo man with obesity and comorbidities; has been losing weight with terzepatide and tolerating well. Has been on 10 mg for about 3 months; continuing to focus on healthy lifestyle and feels well. Would like to increase dose. Having difficulty obtaining 10 mg dose under brand name of betty. Would like to increase the dose. ?? OBJECTIVE: Height carried forward; weight self reported from day prior. Decreased 11.2 lb from lastoffice visit General: No acute distress, well-appearing HEENT: NCAT normal conjunctiva & lids, hearing grossly normal, external ears normal, good dentition, OP clear Pulmonary: breathing non-labored, no appreciable stridors, wheezing, cough Neuro: appropriate cognition, normal speech, no obvious deficit Psych: appropriate judgment, insight, mood, affect Skin: no rashes, ecchymoses, suspicious lesions Exam limited by use of video platform. * Office Visit - 10/08/2023 SUBJECTIVE: Confirmed name and date of with patient. Patient consented to receiving telemedicine services by signing our terms of service. This telemedicine visit was conducted??using real-time audio-video telecommunications. 37 yo man presenting remotely to follow up on pharmacologic management of obesity.?? Patient has been taking mounjaro dose increased?? baseline weight 250 Exercise involves building a house and biking/running. Still working on carbs; avoiding processed food; protein from beef chicken fish nuts protein powder.60- 70 g protein and 50 g fiber daily Taking pre/pro biotics Normal BMs. Diarrhea from April cleared up after about a month.?? Doing ok emotionally; sees psychiatry?? Back doing ok?? Aiming for 180 lb.?? Medication is being covered and is doing ok availability. OBJECTIVE: Weight self reported-decreased 3.1 lb from last RV; net loss 14.3 lab from 05/2023 OV; decreased 40 lb from reported baseline weight General: No acute distress, well-appearing HEENT: NCAT, normal conjunctiva & lids, hearing grossly normal, external ears normal, good dentition, OP clear Pulmonary: breathing non-labored, no appreciable stridors, wheezing, cough Neuro: appropriate cognition, normal speech, no obvious deficit Psych: appropriate judgment, insight, mood, affect Skin: no rashes, ecchymoses, suspicious lesions Exam limited by use of video platform. * Office Visit - 12/24/2023 SUBJECTIVE: Confirmed name and date of with patient. Patient consented to receiving telemedicine services by signing our terms of service. This telemedicine visit was conducted??using real-time audio-video telecommunications. [place], [place] and [place]. Lives in [place].?? Here today for Adderall refill, has not been able to fill through his psych - has not heard anything back even after multiple messages?? Almost out of adderall, so really hoping to get a bridge supply today. Then, plans to keep seeing his psych?? OBJECTIVE: Exam limited by use of video platform General: No acute distress, well-appearing HEENT: Normal conjunctiva & lids, hearing grossly normal, external ears normal Neck: full ROM Pulmonary: breathing non-labored, no appreciable stridors, wheezing, cough Neuro: appropriate cognition, normal speech, no obvious deficit Psych: appropriate judgment, insight, mood, affect * Triage Encounter - 12/24/2023 SUBJECTIVE: 12/24/2023 8:36 AM [facility] Caller's Name: Jj JIMÉNEZ Caller's Location (State): [place]?? Request Detail: Called to make sure this script is real and legit since he has never filled medication at this pharmacy for this pt before.?? Call Back Number: [phone] Is Someone Waiting On The Line: Yes spoke to pharmacist confirmed we sent the prescription to the right place and that the prescription is legitimate?? OBJECTIVE: * Office Visit - 03/01/2024 SUBJECTIVE: Confirmed name and date of with patient. Patient consented to receiving telemedicine services by signing our terms of service. This telemedicine visit was conducted??using real-time audio-video telecommunications. 38 yo man with obesity; has been taking terzepitide since approx 01/2023; dose being gradually increased. Taking current 12.5 mg dosage q Wednesday for about 6 months. Presenting for follow up. Patient reports that he is??tolerating current dosage and feels he is doing well. Current??exercise consists of bike 30 miles a day and some lights weights 2X per week and sometimes runs. Taking a protein supplement getting 60 g per day or more. Energy level is fine.?? Had recent work physical-?? BP and blood work all fine Goal weight is 185?? OBJECTIVE: General: No acute distress, well-appearing HEENT: NCAT, normal conjunctiva & lids, hearing grossly normal, external ears normal, good dentition, OP clear Pulmonary: breathing non-labored, no appreciable stridors, wheezing, cough Neuro: appropriate cognition, normal speech, no obvious deficit Psych: appropriate judgment, insight, mood, affect Skin: no rashes, ecchymoses, suspicious lesions Exam limited by use of video platform. * Office Visit - 03/07/2024 SUBJECTIVE: Confirmed name and date of with patient. Patient consented to receiving telemedicine services by signing our terms of service. This telemedicine visit was conducted??using real-time audio-video telecommunications. CC: Patient with historical ADHD diagnosis presents to establish care at [facility] for treatment.Prior psychiatrist left the practice. He is hoping to reestablish with psychiatry but feels that may take time. Has about a week left on his current adderall prescription.?? PERTINENT HISTORY:?? - Age at diagnosis: 26 or 27; diagnosed with ADHD and OCD?? - Means of diagnosis: Neuropsych testing in 2021 which confirmed ADHD. Initially diagnosed in 2011 by a psychiatrist in [place] - had evaluation over several visits; didn't feel comfortable with the diagnosis, so he stopped taking meds for a few years. In 2014 or 2015 had increased anxiety and poor overall functioning and was started on lexapro which he is still taking. In 2018 or early 2019 started seeing a new psychiatrist who put him on Concerta and a variety of meds until starting on his currentregimen.?? - Medication history (including current regimen): adderall 10 mg IR bid; usually takes it daily. Vyvance caused irritability see also above - Medication efficacy: Works very well.?? - Adverse medication effects: None - History of anxiety, depression, substance use disorder or bipolar disorder: RAMSEY under good control on escitalopram - Use of caffeine, alcohol, cannabis and other stimulants: reviewed?? PERTINENT ROS No history of CVD, uncontrolled high blood pressure, personal or family history hypertrophic cardiomyopathy, glaucoma or arrhythmias OBJECTIVE: RHR 72 avg?? General: No acute distress, well-appearing HEENT: NCAT, normal conjunctiva & lids, hearing grossly normal, external ears normal, good dentition, OP clear Pulmonary: breathing non-labored, no appreciable stridors, wheezing, cough Neuro: appropriate cognition, normal speech, no obvious deficit Psych: appropriate judgment, insight, mood, affect Skin: no rashes, ecchymoses, suspicious lesions Exam limited by use of video platform. * Office Visit - 05/21/2024 SUBJECTIVE: 38 yo man presenting for a yearly wellness visit and Obesity/ADHD follow up?Worried about mold in the house but none found using mold sensors; hasn't been feeling well lately; only new med or supplement is zinc ADHD follow up: Current treatment regimen:?? Symptom control:?? fantastic takes one pill daily but doesn't always take 2nd dose.?? Overall satisfied/dissatisfied: satisfied Adverse medication effects:?? Occ rapid HR noted by watch- in upper 90s?? Use of caffeine, alcohol, cannabis, and other stimulants: reviewed no concerns Review of systems: GEN: negative for fever, unintended weight loss, change in appetite, disturbed sleep; regaining some weight despite mounjaro; + fatigue and feels off lately; thinks it's stress. HEENT: negative for throat pain, dysphagia, nasal congestion, sinus pressure; loss of hearing, ear pain occ takes allergy medication Cardiac: no exertional chest pain, palpitations, edema, light headedness -has had infrequent HR upper 90s noted on watch no symptoms.?? Pulmonary: no shortness of breath, cough, wheeze GI: no abdominal pain, no stool changes,??Feeling nauseated in the morning no emesis. : no dysuria, frequency, no STI concerns MSK: Positive for??Ankle injury having surgery 06/02 to remove shave and restore a tendon; patient notes some RA n famiily more back pain seeing chiropractor and elbow pain; ankle stiffness in am, no pain in hands/wrists.?? SKIN: no rash, color changes Psych: anxiety/depression controlled; see above re ADHD. Patient was given a prescription for ketamine but hasn't tried it, knows not to mix with adder all. Going to therapy Neuro: see HPI OBJECTIVE: General: No distress HEENT: NC/AT nl conjunctiva & lids, hearing grossly nl, normal mucous membranes and oropharynx Neck: supple, no concerning masses, no LAD Lungs: CTA bilaterally, nl effort CV: RRR , no M/R/G, no edema Abd: S/NT/ND Neuro/Psych: appropriate affect and responses, normal gait, no focal deficits appreciated Skin: normal color and turgor * Walk-in Visit - 05/19/2024 SUBJECTIVE: OBJECTIVE: * Office Visit - 07/05/2024 SUBJECTIVE: Confirmed name and date of with patient. Patient consented to receiving telemedicine services by signing our terms of service. This telemedicine visit was conducted??using real-time audio-video telecommunications. CC: Patient presents for follow up ADHD/ADD management. Current treatment regimen: adderall 10 mg bid; takes just about every day; sometimes only takes onedose on days off. First dose 5-8 am and 2nd dose usually around 1 -2 pm Symptom control: fantastic works better than other things he has tried including vyvance, concerta and Adderall XR Overall satisfied/dissatisfied: satisfied Adverse medication effects: None Use of caffeine, alcohol, cannabis, and other stimulants: reviewed ROS: Mood changes/anxiety: denies Insomnia: denies Low Appetite or unintentional weight loss: denies Chest pain/sob/dyspnea/palpitations: denies Stopped stasis herbal vitamin and feels better. Stopping Zinc didn't help.?? Picked up Adderall 06/26/24 Continued ankle pain; seeing an orthopedist [foot/ankle] next week for possible surgery Patient has stopped mounjaro in anticipation of surgery.?? Wants to discuss alternative medicationsfor a few months while he is recovering ?? Was previously on wellbutrin without issues but feels lexapro is more effective for his depression and anxiety OBJECTIVE: Exam limited by use of video platform General: No acute distress, well-appearing HEENT: Normocephalic and atraumatic, conjunctiva without redness or drainage, no eyelid swelling, hearing and vision grossly intact Pulmonary: Speaking in full sentences without labored breathing. No audible wheezing or cough?? Neuro: Appropriate cognition, normal speech, no obvious deficit Psych: Appropriate mood, affect, and behavior Skin: No rash, bruising, or skin lesions pertinent to current condition * Office Visit - 07/20/2024 SUBJECTIVE: Confirmed name and date of with patient. Patient consented to receiving telemedicine services by signing our terms of service. This telemedicine visit was conducted??using real-time audio-video telecommunications. Patient confirmed that he is in [place] at the time of the RV 38 yo man presents remotely with health concerns mainly related to nasal congestion. Patient notes that??when he pulls on the tip of his nose, he gets head pain. Some swelling; nose is generally dry over the past month but has ?? a ton of boogers ??in them morning and is more fatigued; fell asleepin the middle of the day.?? Worried about underlying causes Sleep is not consistently restorative; more issues with this than in the past. More sleepy during the day. Snores loudly at night.Symptoms worse over past 4-6 weeks.?? Patient is stable on adderall and doesn't feel it is impacting sleep. Will need a new rx next week. OBJECTIVE: Exam limited by use of video platform General: No acute distress, well-appearing HEENT: Normocephalic and atraumatic, conjunctiva without redness or drainage, no eyelid swelling, hearing and vision grossly intact; external nares appears normal on video; mild tenderness to self exam; no sinus tenderness on self exam Neck: Full ROM, no lymphadenopathy on patient self-exam Pulmonary: Speaking in full sentences without labored breathing. No audible wheezing or cough?? Neuro: Appropriate cognition, normal speech, no obvious deficit; some anxiety observed Psych: Appropriate mood, affect, and behavior Skin: No rash, bruising, or skin lesions pertinent to current condition
--- OUTSIDE RECORDS SUMMARY | 2024-08-17 00:35 | XMS_ITS | Encounter Summary ---
Author Organization [facility] Address [address] [place] [address] Care Team Providers Care Heel Curver Name Role Phone Ray Gonzalez MD Primary Care Provider [phone] Encounter Details Date Type Department Care Team (Late st Contact Info) Description 12/17/2003 Outpatient Historical [facility] Conversion, History Er, Authorized P NO ADDRESS ON FILE NONSPECIF SKIN ERUPT NEC (Primary Dx) Social History Tobacco Use Types Packs/Day Years Used Date Smoking Tobacco: Never Assessed Sex and Gender Information Value Date Recorded Sex Assigned at Not on file Legal Sex Male 5:00 AM [employer] Gender Identity Not on file Sexual Orientation Not on file documented as of this encounter Plan of Treatment Not on file documented as of this encounter Visit Diagnoses Diagnosis Rash and other nonspecific skin eruption- Primary documented in this encounter Care Teams Heel Curver Relationship Specialty Start Date End Date Ray Gonzalez MD PCP - General 07/14/12 documented as of this encounter
[2024-08-17] MEDS: ACETAMINOPHEN 500 MG TABLET 1000 MG PO (07:00)
[2024-08-17] MEDS: KETOROLAC 15 MG/ML VIAL (*BKC) IV PUSH (07:01)
[2024-08-17] MEDS: LACTATED RINGERS 1,000 ML 30 ML IV CONT ×2 (07:10→09:12)
--- NOTE | 2024-08-17 07:12 | WPDHPUPDATE1 ---
History and Physical Update Update Date/Time: 08/17/24 07:12 History and Physical has been reviewed, including an updated exam of the patient. There are NO changes in the patient's condition. Plan left achilles reconstruction, excision calcaneal exostosis, possible tendon transfer. Risks, benefits, and alternatives have been discussed and questions answered. Patient agrees to proceed with procedure.
--- NOTE | 2024-08-17 07:16 | P.PNAN_ITS ---
Anes - Initial Pre Proc Eval Procedure: Operation Date: 08/17/24 07:30 Proposed Procedures p Left Achilles Reconstruction, - Torin Cuellar MD s Excision Calcaneal Exostosis, Possible Tendon Transfer - Torin Cuellar MD Date/Time: 08/17/24 07:16 Surgeon: Torin Cuellar MD Pre Op Diagnosis: Lt Achilles Tendinosis,Calcaneal Exostosis Patient Data Age: 38 Gender: M Height: 1.68 m Weight: 100 kg Allergies Allergy/AdvReac Type Severity Reaction Status Date / Time No Known Allergies Allergy Unverified 08/08/24 15:36 Home Medications ?Medication ?Instructions ?Recorded ?Confirmed ?Type bupropion HCl 150 mg 24 hr tablet, 150 mg PO QAM 07/11/24 08/08/24 History extended release (Wellbutrin XL) dextroamphetamine-amphetamine 10 10 mg PO BID 07/11/24 08/08/24 History mg tablet (Adderall) escitalopram oxalate 20 mg tablet 20 mg PO DAILY 07/11/24 08/08/24 History (Lexapro) naltrexone 50 mg tablet 25 mg PO DAILY 07/11/24 08/08/24 History tirzepatide 12.5 mg/0.5 mL 12.5 mg subcut WEEKLY 08/08/24 08/08/24 History subcutaneous pen injector (Mounjaro) Patient hx anesthesia problems: other (Pt reports that HR went up w dental procedure in the past. ) Family hx anesthesia problems: none Results Review: All pre-operative results and documents have been reviewed as part of the pre- operative evaluation. [facility] Past Medical History Medical History ADHD Exostosis of left posterior calcaneus Achilles tendinitis of left lower extremity Surgical History Surgical History H/O vasectomy History of appendectomy Family History Family History Unknown Hypertension Depression Heart disease Diabetes mellitus Cancer Social History Social History Social History: caffeine use Smoking status: Never smoker Alcohol intake: current Drinks per week: 1 Alcohol use details: 2 PER MONTH Substance use: never Living arrangements: with family Occupation/Education: occupation Additional occupation/education comments: [employer] Gender identity (if verbalized by the patient): Male [employer] - [employer] Final PreProcedure Day of Procedure 08/17/24 07:16 Patient weight: obese Lungs: normal air movement Airway: Mallampati scale class II Neurological: alert and oriented Last oral intake: >/= 8 hours ASA classification: III Emergent: no Anesthetic plan: proceed Anesthesia type and monitoring: general LMA and standard monitoring Results Review: All pre-operative results and documents have been reviewed as part of the pre- operative evaluation. Ex smoker quit approx 2009, ADHD meds, BMI 35. Informed Consent: The patient's anesthetic plan and its attendant risks and benefits were discussed with the patient/family/POA. Questions were solicited and answers provided to the satisfaction of the patient/family/POA.
--- NOTE | 2024-08-17 07:21 | W.PM.PROC2 ---
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 Failed nonoperative treatment. Pain daily, presents for operative treatment. Description of Procedure Patient identified in the preoperative holding. Informed consent given. Operative extremity marked. Patient received intravenous antibiotics. Patient brought to the operating room where underwent general anesthetic by anesthesia team. Positioned prone on operating room table. Care taken to carefully secure and protect the head neck, and pad the bony prominences, and position the shoulders and arms. Time-out performed confirming the patient, site of the surgery and the plan. Right lower extremity prepped draped usual sterile surgical fashion using ChloraPrep skin solution. Left Foot and ankle exsanguinated and thigh tourniquet inflated to 250 mmHg. Direct posterior midline incision made with 15 blade knife over the distal Achilles tendon and posterior calcaneus. Hemostasis achieved with electrocautery. Full-thickness skin flaps developed medially and laterally including the paratenon over the Achilles tendon. Distal Achilles tendon noted to be degenerative with calcifications present. Fifteen blade knife used to release the Achilles tendon off the distal calcaneus with a midline split. Calcifications and degenerative portions sharply excised. Sufficient amount of normal Achilles tendon remaining for reconstruction. Osteotome used to resect the posterior calcaneal exostosis and osteophytes. Edges smoothed with a rongeur. Image intensification brought in and confirmed resection of the posterior exostosis. Wound thoroughly irrigated with saline. Retrocalcaneal bursa also sharply excised and bleeding points coagulated. Attention then turned to the Achilles tendon. Reconstruction achieved with the Arthrex Speed Bridge. 3.5 mm drill holes placed in posterior calcaneus and PushLock anchors placed with fiber tape. Fiber tape then delivered through the medial and lateral end of the Achilles tendon. Repair completed by passing the FiberTape ends through 4.75 mm SwiveLock anchors placed distal to the Achilles tendon insertion. Good repair noted. Midline split repaired with 0 Vicryl interrupted suture. Wound thoroughly irrigated antibiotic solution. Paratenon then repaired with 3 0 Monocryl running suture. Deep soft tissue repaired with 2 O Vicryl interrupted suture. Skin approximated with 4 O nylon running suture. Sterile dressing applied. Bulky dressing and splint applied after releasing the tourniquet. The patient was then woken from anesthesia, extubated and taken to the recovery room in stable condition. All sponge, needle, instrument counts were correct at the end of the case. Implants arthrex speed bridge Estimated Blood Loss 5 Tourniquet Time Total Tourniquet Time: 60 Drains No Packing No Pathology None sent Complications None Condition Stable Disposition PACU [facility] Billing Surgery - Charge Forward: Surgery Billing ([id number], [id number])
[2024-08-17] MEDS: ceFAZolin 2 GM/D5W 50 ML 2 GM/50 ML BAG IVPB (07:28)
[2024-08-17] MEDS: BUPivacaine HCL 0.5% PF 30 ML VIAL 10 ML INFILTRATE (08:12)
--- NOTE | 2024-08-17 10:28 | WPDANESPNB ---
Anes - Peripheral Nerve Block Date/Time: 08/17/24 10:28 I have discussed with the patient/family/POA the placement of a peripheral nerve block for post-operative pain management, including associated risks, benefits, complications, and side effects. Alternative methods of post-operative analgesia were detailed. Questions were solicited and answers provided to the satisfaction of the patient/family/POA. Time-Out: A pre-procedural Time-Out was completed immediately before starting the procedure and confirmed: Patient Identification, Site, Procedure, Patient Position and the Availability of Requisite Equipment. Clinical Indications: Acute post-operative pain management requested by the operative surgeon. Nerve Block Insertion Note Anes-nerve block: posterior fossa sciatic left Patient position: other (right lateral) Skin prep: chlorhexidine Needle: 22 gauge, stimulating, insulated echogenic needle. Needle length: 80 mm Technique: ultrasound Injectate: bupivacaine 0.5% with epi 5 mcg/ml (no epi - 20 ml) Observations: tolerated well Complications: none Procedure start time:: 920 Procedure end time:: 924
== END 2024-08-17 10:55 | disposition home or self-care (01) ==
PROVIDERS: Visit Provider Orthopaedic Surgery
PROC: (CPT 27650; principal; 2024-08-17 07:30)
PROC: (CPT 28750; 2024-08-17 07:30)
DX: M76.62 Achilles tendinitis, left leg (principal); M77.32 Calcaneal spur, left foot; F90.9 Attention-deficit hyperactivity disorder, unspecified type; E66.9 Obesity, unspecified; Z68.35 Body mass index [BMI] 35.0-35.9, adult
CPT/HCPCS: 27654; 28120; 99199; A9270; C1713; J0690; J1100; J1885; J2003; J2250; J2405; J2704; J3010; J7120